=== PATIENT | female | born 1960 | race Caucasian/White ===

== ENCOUNTER 2025-07-01 09:45 | Outpatient (CLI) | payer MEDICARE, SELFPAY ==
--- OUTSIDE RECORDS SUMMARY | 2025-01-06 10:27 | XMS_ITS | Continuity of Care Document ---
Author Organization 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 Project Captain Name Role Phone Bhargavi Chanel Unavailable Unavailable Allergies, Adverse Reactions, Alerts Substance Reaction Status Criticality atorvastatin Joint Pain Active No Information amoxicillin RashRash Active No Information lisinopril Cough Active No Information codeine Active No Information Medications Medication Instructions Dosage Effective Dates (start - stop) Status Comments metoprolol succinate ER 25 mg tablet,extended release 24 hr TAKE ONE TABLET BY MOUTH DAILY - Active losartan 50 mg tablet take 1 tablet by oral route every day 50 MG - Active Flonase Allergy Relief 50 mcg/actuation nasal spray,suspension spray 1 - 2 spray by intranasal route every day in each nostril as needed 50-100 MCG - Active buspirone 5 mg tablet take 1-2 tablet by oral route 3 times every day if needed for anxiety - Active aspirin 81 mg tablet,delayed release take 1 tablet by oral route every day 81 MG - Active atorvastatin 80 mg tablet Take 1 tablet (80 mg total) by mouth nightly. - No Longer Active Procedures Procedure Date OFFICE/OUTPATIENT VISIT, EST TOBACCO USE, SMOKING, ASSESS SMOKING & 2ND HAND ASSESSED CURRENT TOBACCO SMOKER BLOOD PRESSURE, MEASURED WEIGHT RECORDED VITAL SIGNS RECORDED BODY MASS INDEX DOCD DIAST BP 80-89 MM HG SYST BP GE 130 - 139MM HG VISUAL ACUITY SCREEN Admin pneumococcal vaccine PCV20 VACCINE IM Initial preventive exam TOBACCO USE, SMOKING, ASSESS SMOKING & 2ND HAND ASSESSED CURRENT TOBACCO SMOKER PT FALLS ASSESS-DOC'D LE1/YR BLOOD PRESSURE, MEASURED WEIGHT RECORDED VITAL SIGNS RECORDED BODY MASS INDEX DOCD FALL RISK ASSESSMENT DOC'D NEG SCRN DEP SYMP BY DEPTOOL NO SIG DEP SYMP BY DEP TOOL DIAST BP >= 90 MM HG SYST BP >= 140 MM HG6 IT OFFICE/OUTPATIENT VISIT, EST TOBACCO USE, SMOKING, ASSESS SMOKING & 2ND HAND ASSESSED TOBACCO NONSMOKER NOR 2NDHND TOBACCO NON-USER BLOOD PRESSURE, MEASURED WEIGHT RECORDED VITAL SIGNS RECORDED BODY MASS INDEX DOCD DIAST BP 80-89 MM HG SYST BP >= 140 MM HG6 IT OFFICE/OUTPATIENT VISIT, EST TOBACCO USE, SMOKING, ASSESS TOBACCO NON-USER BLOOD PRESSURE, MEASURED WEIGHT RECORDED VITAL SIGNS RECORDED BODY MASS INDEX DOCD DIAST BP < 80 MM HG SYST BP >= 140 MM HG6 IT EST PT, OBTAINING SCREEN PAP SMEAR PREV VISIT, EST, AGE 40-64 TOBACCO USE, SMOKING, ASSESS SMOKING & 2ND HAND ASSESSED TOBACCO NONSMOKER NOR 2NDHND TOBACCO NON-USER BLOOD PRESSURE, MEASURED WEIGHT RECORDED VITAL SIGNS RECORDED BODY MASS INDEX DOCD NEG SCRN DEP SYMP BY DEPTOOL NO SIG DEP SYMP BY DEP TOOL DIAST BP >= 90 MM HG SYST BP >= 140 MM HG6 IT OFFICE/OUTPATIENT VISIT, EST TOBACCO USE, SMOKING, ASSESS TOBACCO NON-USER PT SCREENED FOR DEPRESSION BLOOD PRESSURE, MEASURED WEIGHT RECORDED VITAL SIGNS RECORDED BODY MASS INDEX DOCD NO SIG DEP SYMP BY DEP TOOL DIAST BP >= 90 MM HG SYST BP >= 140 MM HG6 IT OFFICE/OUTPATIENT VISIT, EST TOBACCO USE, SMOKING, ASSESS TOBACCO NON-USER PT SCREENED FOR DEPRESSION BLOOD PRESSURE, MEASURED WEIGHT RECORDED VITAL SIGNS RECORDED BODY MASS INDEX DOCD MILD-MOD DEP SYMP BY DEPTOOL DIAST BP 80-89 MM HG SYST BP >= 140 MM HG6 IT Follow Up Delivery Treatment Plan Complete Try In Bite Relation Final Impression Preliminary Impression Lab Fee Complete Denture-Mandibular Complete Denture-Maxillary Follow Up Ext, Erupt Tth/Expsd Root-Elev &/Or Forc eps Remvl Ext, Erupt Tth/Expsd Root-Elev &/Or Forc eps Remvl Ext, Erupt Tth/Expsd Root-Elev &/Or Forc eps Remvl Ext, Erupt Tth/Expsd Root-Elev &/Or Forc eps Remvl Ext, Erupt Tth/Expsd Root-Elev &/Or Forc eps Remvl Ext, Erupt Tth/Expsd Root-Elev &/Or Forc eps Remvl Ext, Erupt Tth/Expsd Root-Elev &/Or Forc eps Remvl Ext, Erupt Tth/Expsd Root-Elev &/Or Forc eps Remvl Ext, Erupt Tth/Expsd Root-Elev &/Or Forc eps Remvl Ext, Erupt Tth/Expsd Root-Elev &/Or Forc eps Remvl Ext, Erupt Tth/Expsd Root-Elev &/Or Forc eps Remvl Ext, Erupt Tth/Expsd Root-Elev &/Or Forc eps Remvl Ext, Erupt Tth/Expsd Root-Elev &/Or Forc eps Remvl Ext, Erupt Tth/Expsd Root-Elev &/Or Forc eps Remvl Removal Of Impacted Tooth-Partially Bony Ext, Erupt Tth/Expsd Root-Elev &/Or Forc eps Remvl Ext, Erupt Tth/Expsd Root-Elev &/Or Forc eps Remvl Ext, Erupt Tth/Expsd Root-Elev &/Or Forc eps Remvl Ext, Erupt Tth/Expsd Root-Elev &/Or Forc eps Remvl Ext, Erupt Tth/Expsd Root-Elev &/Or Forc eps Remvl OFFICE/OUTPATIENT VISIT, EST TOBACCO USE, SMOKING, ASSESS SMOKING & 2ND HAND ASSESSED TOBACCO NON-USER BLOOD PRESSURE, MEASURED WEIGHT RECORDED VITAL SIGNS RECORDED BODY MASS INDEX DOCD DIAST BP < 80 MM HG SYST BP GE 130 - 139MM HG BLOOD PRESSURE, MEASURED DIAST BP >= 90 MM HG SYST BP >= 140 MM HG6 IT OFFICE/OUTPATIENT VISIT, EST TOBACCO USE, SMOKING, ASSESS SMOKING & 2ND HAND ASSESSED TOBACCO NON-USER BLOOD PRESSURE, MEASURED WEIGHT RECORDED VITAL SIGNS RECORDED BODY MASS INDEX DOCD DIAST BP >= 90 MM HG SYST BP >= 140 MM HG6 IT Consultation COVID-19 MRNA, LNP-S, PF, 30 MCG/0.3 ML PFIZER ADMIN DOSE 2 (COVID VACC) 2020 COVID-19 MRNA, LNP-S, PF, 30 MCG/0.3 ML PFIZER ADMIN DOSE 1 (COVID VACC) 2020 URINALYSIS, AUTO, W/O SCOPE Consultation TRANS CARE MGMT 14 DAY DISCH OR LOW/MODE RATE CARE OFFICE/OUTPATIENT VISIT, EST Bitewings-Four Radiographic Images Intraoral-Periapical First Radiographic Image Intraoral-Periapical Each Addl Radiograp hic Image Intraoral-Periapical Each Addl Radiograp hic Image Intraoral-Periapical Each Addl Radiograp hic Image Intraoral-Periapical Each Addl Radiograp hic Image Intraoral-Periapical Each Addl Radiograp hic Image Panoramic Radiographic Image Comprehensive Oral Eval-New Or Establish ed Patient OFFICE/OUTPATIENT VISIT, EST OFFICE/OUTPATIENT VISIT, NEW Intraoral-Periapical First Radiographic Image Limited Oral Evaluation-Problem Focused Results Test Name Date and Time Measure Units Reference Range Abnormal Flag Status Commen ts Panel Description: MG Breast - bilateral Screeni ng Final Document Advance Directives Directive Yes / No Effective Date File Name No Information Encounters Encounter Description Practice Location Reason(s) For Visit Diagnoses Date Provider Providers Copied on Encounter [facility], [address], [place], [place], [id number] , [place] tel:[phone] [facility] No Information 5 Abdiaziz Burk. [address] [place], [place], [id number], [place]. tel:[phone] OFFICE/OUTPA TIENT VISIT, [facility], [address], [place], [place], [address] , [place] tel: [phone] [facility] F/U DEXA (chief complaint) OsteoporosisMi xed hyperlipidemia Essential hypertensionOt her abnormal finding on diagnostic imaging of br 5 Abdiaziz Burk. [address] [place], [place], [id number], [place]. tel:[phone] [facility], [address], [place], [place], [address] , [place] tel:[phone] [facility] Medicare preventive (chief complaint) Nicotine dependence, cigarettes, uncomplicatedE ssential hypertensionDi sorder of bone density and structure, unspecifiedMix ed hyperlipidemia 5 Abdiaziz Burk. [address] [place], [place], [id number], [place]. tel:[phone] OFFICE/OUTPA TIENT VISIT, [facility], [address], [place], [place], [address] , [place] tel: [phone] [facility] F/U HTN (chief complaint)Al lergies. (chief complaint) Allergic rhinitis due to pollen 5 Abdiaziz Acevedole. [facility] [place], [id number], . tel:[phone] OFFICE/OUTPA TIENT VISIT, [facility], [address], [place], [place], [address] , [place] tel: [phone] [facility] F/U BP (chief complaint) No Information 4 Rice Bhargavi. [facility] [place], [id number], [place]. tel:[phone] [facility], [address], [place], [place], [address] , [place] tel: [phone] [facility] No Information 4 Abdiaziz Bhargavi. [facility] [place], [id number], [place]. tel:[phone] PREV VISIT, [facility], AGE 40-[address] [facility], [address], [place], [place], [address] , [place] tel: [phone] [facility] Preventive exam (chief complaint)F/ U anxiety (chief complaint)F/ U HTN (chief complaint)F/ U high cholesterol (chief complaint) Generalized Anxiety Disorder 4 Rice Bhargavi. [facility] [place], [id number], [place]. tel:[phone] OFFICE/OUTPA TIENT VISIT, [facility], [address], [place], [place], [id number] , [place] tel: [phone] [facility] F/U HTN (chief complaint)F/ U anxiety (chief complaint) No Information 4 Rice Bhargavi. [address] [place] [address], [id number], [place]. tel:[phone] OFFICE/OUTPA TIENT VISIT, [facility], [address], [place], [place], [id number] , [place] tel: [phone] [facility] F/U HTN (chief complaint)Ab dominal Pain. (chief complaint) No Information 3 Rice Bhargavi. [address] [place], [place], [id number], [place]. tel:[phone] [facility], [address], [place], [address] , [place] tel: [phone] [facility] No Information 2 Manzini Janae. [address] [place], [place], [facility], . tel:[phone] [place] [address], [address], [place], [address] , tel: [phone] [facility] No Information 2 Manzini Janae. [address] [place], [place], [facility], [place]. tel:[phone] [facility], [address], [place], [place], [address] , [place] tel: [phone] [facility] No Information 2 Manzini Janae. [address] [place], [place], [facility], . tel:[phone] [facility], [address], [place], [place], [address] , [place] tel: [phone] [facility] No Information 0 2 Manzini Janae. [address] [place], [place], [facility], . tel:[phone] [facility], [address], [place], [place], [address] , tel: [phone] [facility] No Information 2 Manzini Janae. [address] [place], [place], [facility], . tel:[phone] [facility], [address], [place], [address] , [place] tel: [phone] [facility] No Information 2 Manzini Janae. [address] [place], [address], . tel: [phone] [facility], [address], [place], [address] , [place] tel: [phone] [facility] No Information 2 Manzini Janae. [address] [place], [address], [place]. tel: [phone] [facility], [address], [place], [address] , [place] tel: [phone] [facility] No Information 2 Manzini Janae. [address] [place], [place], [facility], [place]. tel: [phone] [facility], [address], [place], [address] , [place] tel: [phone] [facility] No Information 1 Manzini Janae. [address] [place], [place], [facility], . tel: [phone] OFFICE/OUTPA TIENT VISIT, EST [facility], [address], [place], [address] , [place] tel: [phone] [facility] F/U BP (chief complaint) No Information 1 Rice Bhargavi. [address] [place], [place], [id number], [place]. tel:[phone] [facility], [address], [place], [place], [address] , [place] tel: [phone] [facility] Blood Pressure (chief complaint) No Information 1 Broschart Bárbara. [address] [place], [place], [facility], [place]. tel:[phone] OFFICE/OUTPA TIENT VISIT, EST [facility], [address], [place], [place], [address] , [place] tel: [phone] [facility] Acute HTN (chief complaint) No Information 1 Rice Bhargavi. [address] [place] [address], [id number], [place]. tel:[phone] [facility], [address], [place], [place], [address] , [place] tel: [phone] [facility] No Information 1 Raul Cardoso. [address] [place] [address], [address], . tel:[phone] [facility], [address], [place], [place], [address] , [place] tel: [phone] [facility] No Information 1 Roberto Marie. [address] [place] [address], [id number], [place]. tel:[phone] Referring Provider: Bárbara Medina, [address] [place] [address], [address]. tel:[phone] [facility], [address], [place], [place], [address] , [place] tel: [phone] [facility] No Information 1 Roberto Marie. [address] [place] [address], [id number], [place]. tel:[phone] Referring Provider: Bárbara Medina, [address] [place] [address], [address]. tel:[phone] [facility], [address], [place], [place], [address] , [place] tel: [phone] [facility] Possible UTI (chief complaint) No Information 1 Rice Bhargavi. [address] [place] [address], [id number], . tel:[phone] [facility], [address], [place], [address] , [place] tel: [phone] [facility] No Information 1 Rual Cardoso. [address] [place], [address], . tel:[phone] TRANS CARE MGMT 14 DAY DISCH OR LOW/MODERATE CARE [facility], [address], [place], [place], [id number] , [place] tel: [phone] [facility] Telehealth (chief complaint) Personal history of cerebral infarction w/o residual deficit 1 Abdiaziz Bhargavi. [address] [place] [address], [id number], . tel:[phone] OFFICE/OUTPA TIENT VISIT, [facility], [address], [place], [place], [address] , [place] tel: [phone] [facility] F/U HTN (chief complaint)An xiety. (chief complaint) No Information 1 Abdiaziz Bhargavi. [address] [place] [address], [id number], . tel:[phone] [facility], [address], [place], [address] , [place] tel: [phone] [facility] No Information 1 Raul Cardoso. [address] [place] [address], [address], . tel:[phone] OFFICE/OUTPA TIENT VISIT, [facility], [address], [place], [place], [address] , [place] tel: [phone] [facility] F/U HTN (chief complaint)F/ U Anxiety (chief complaint)De ntal concerns (chief complaint) No Information 0 Abdiaziz Burk. [address] [place] [address], [id number], [place]. tel:[phone] OFFICE/OUTPA TIENT VISIT, NEW [facility], [address], [place], [place], [address] , [place] tel: [phone] [facility] New Patient (chief complaint)HT N (chief complaint)Ch ronic Anxiety (chief complaint)Ni cotine Dependence (chief complaint)R Shoulder Pain (chief complaint) No Information 0 Abdiaziz Bhargavi. [address] [place], [place], [id number], [place]. tel:[phone] [facility], [address], [place], [place], [address] , [place] tel: [phone] [facility] No Information 0 Raul Nuñezanor. [address] [place], [address], [place]. tel:[phone] [facility], [address], [place], [address] , [place] tel: [phone] [facility] Historical Location No Information 4 No Information Family History Family Member Type Diagnosis Age At Onset Sister Problem hypertension Brother Problem VA Brother Problem Cardiovascular disease Mother Problem hypertension Sister Problem Cardiovascular disease Father Problem malignant neopla sm of breast in first degree relative Father Problem malignant neoplasm of lung Mother Problem alzheimer's disease Brother Problem hypertension Mother Problem Cardiovascular disease Sister Problem VA Immunizations Vaccine Date Status Comments PCV20 administered Source: New Imm unization Record PFIZER COVID19 VACCINE administered Sour e: New Immunization Record PFIZER COVID19 VACCINE administered Sour e: New Immunization Record Payers Payer name Insurance type Covered democrat ID Authoriza tion(s) MEDICARE NGS FQHC MB [id number] HUMANA CI [id number] MEDICARE NGS FQHC MB [id number] [employer]MANA CI [id number] Social History Type Description Quantity Date Captured Comments Sex Female Smoking Status No Information Sexual Orientation Straight or heterosexual Mar Gender Identity Female Chief Complaint And Reason For Visit No Information Reason For Referral Reason For Referral No Information Plan Of Treatment Date Type Action Status Goal Mammogram. Due on 7 due Goal Drug use screeni ng (DAST). Due on due Goal HPV. Due on due Goal CT low dose, bhavesh g cancer screen. Due on due Goal Fall Risk Assess ment. Due on due Goal Tdap Vaccine. Due on 2024 due Goal DEXA scan. Due on due Goal ECG due Goal Hep C Ab. Due on due Goal FOBT. Due on due Goal Influenza Vaccine. Due on due Goal Colonoscopy. Due on 025 due Goal Urinalysis. Due on 25 due Goal FIT-DNA. Due on due Goal HRA. Due on due Goal Unhealthy drug u se screening. Due on due Goal Zoster vaccine ( 1st). Due on due Goal CT-Colonography. Due on due Goal Td Vaccine. Due on due Goal FIT. Due on due Goal Pneumococcal vac cine. Due on due Goal Tdap. Due on due Goal Medicare Wellnes s Visit. Due on due Goal Sigmoidoscopy. Due on due Goal Depression scree macey. Due on due Goal HPV. Due on due Goal Drug use screeni ng (DAST). Due on due Goal HRA. Due on due Goal Sigmoidoscopy. Due on due Goal Unhealthy drug u se screening. Due on due Goal Medicare Wellnes s Visit. Due on due Goal Pneumococcal vac cine. Due on due Goal FIT. Due on due Goal Depression scree macey. Due on due Goal Tdap. Due on due Goal Zoster vaccine ( 1st). Due on due Goal Fall Risk Assess ment. Due on due Goal FOBT. Due on due Goal Colonoscopy. Due on due Goal CT-Colonography. Due on due Goal Tdap Vaccine. Due on [address] low dose, bhavesh g cancer screen. Due on due Goal Influenza Vaccine. Due on due Goal FIT-DNA. Due on due Goal Urinalysis. Due on due Goal Hep C Ab. Due on due Goal Td Vaccine. Due on due Goal DEXA scan. Due on due Goal Tobacco cessation counseling completed Goal Tdap Vaccine. Due on 2024 due Goal Influenza Vaccine. Due on due Goal FIT. Due on due Goal Mammogram. Due on due Goal Unhealthy drug u se screening. Due on due Goal Colonoscopy. Due on due Goal Medicare Wellnes s Visit. Due on due Goal HRA. Due on due Goal FIT-DNA. Due on due Goal Hep C Ab. Due on due Goal HPV. Due on due Goal Depression scree macey. Due on due Goal Pneumococcal vac cine. Due on due Goal FOBT. Due on due Goal Td Vaccine. Due on due Goal Fall Risk Assess ment. Due on due Goal Drug use screeni ng (DAST). Due on due Goal Urinalysis. Due on due Goal ECG. Due on due Goal CT-Colonography. Due on due Goal CT low dose, bhavesh g cancer screen. Due on due Goal DEXA scan. Due on due Goal Sigmoidoscopy. Due on due Goal Zoster vaccine ( 1st). Due on due Goal Tdap. Due on due Goal Mammogram. Due on due Goal FIT-DNA. Due on due Goal Unhealthy drug u se screening. Due on due Goal HIV Screen. Due on due Goal CT-Colonography. Due on due Goal HPV. Due on due Goal PAP. Due on due Goal Zoster vaccine ( 1st). Due on due Goal HRA. Due on due Goal FIT. Due on due Goal Depression scree macey. Due on due Goal Colonoscopy. Due on due Goal Sigmoidoscopy. Due on due Goal HPV Screening. Due on due Goal Drug use screeni ng (DAST). Due on due Goal Td Vaccine. Due on due Goal Hep C Ab. Due on due Goal Tdap Vaccine. Due on 2023 due Goal FOBT. Due on due Goal Tdap. Due on due Goal Influenza Vaccine. Due on due Goal ECG. Due on due Goal Urinalysis. Due on due Goal CT low dose, bhavesh g cancer screen. Due on due Goal Tdap Vaccine. Due on 2023 due Goal PAP. Due on due Goal FOBT. Due on due Goal Mammogram. Due on due Goal Zoster vaccine ( 1st). Due on due Goal HIV Screen. Due on due Goal Drug use screeni ng (DAST). Due on due Goal Td Vaccine. Due on due Goal Depression scree macey. Due on due Goal Tdap. Due on due Goal Colonoscopy. Due on due Goal CT-Colonography. Due on due Goal Influenza Vaccine. Due on due Goal ECG. Due on due Goal Urinalysis. Due on due Goal HPV. Due on due Goal Hep C Ab. Due on due Goal FIT-DNA. Due on due Goal Sigmoidoscopy. Due on due Goal HPV Screening. Due on due Goal FIT. Due on due Goal Unhealthy drug u se screening. Due on due Goal CT low dose, bhavesh g cancer screen. Due on due Goal HRA. Due on due Goal Dietary manageme nt education, guidance, and counseling completed Goal Zoster vaccine ( ). Due on due Goal Mammogram. Due on due Goal Unhealthy drug u se screening. Due on due Goal Tdap Vaccine. Due on 2023 due Goal HRA. Due on due Goal Td Vaccine. Due on due Goal FIT-DNA. Due on due Goal Hep C Ab. Due on due Goal FOBT. Due on due Goal Depression scree macey. Due on due Goal Tdap. Due on due Goal HIV Screen. Due on due Goal FIT. Due on due Goal Influenza Vaccine. Due on due Goal HPV Screening. Due on due Goal HPV. Due on due Goal PAP. Due on due Goal Colonoscopy. Due on due Goal ECG. Due on due Goal CT low dose, bhavesh g cancer screen. Due on due Goal Urinalysis. Due on due Goal Sigmoidoscopy. Due on due Goal Drug use screeni ng (DAST). Due on due Goal CT-Colonography. Due on due Goal Influenza Vaccine. Due on due Goal Zoster vaccine ( 1st). Due on due Goal HRA. Due on due Goal FOBT. Due on due Goal Colonoscopy. Due on due Goal Sigmoidoscopy. Due on due Goal HPV Screening. Due on due Goal CT low dose, bhavesh g cancer screen. Due on due Goal Tdap. Due on due Goal Depression scree macey. Due on due Goal Hep C Ab. Due on due Goal Tdap Vaccine. Due on 2022 due Goal HIV Screen. Due on due Goal PAP. Due on due Goal Td Vaccine. Due on due Goal Annual Exam. Due on due Goal Td Vaccine. Due on due Goal Tdap. Due on due Goal Depression scree macey. Due on due Goal Colonoscopy. Due on due Goal Zoster vaccine ( 1st). Due on due Goal Hep C Ab. Due on due Goal HRA. Due on due Goal Tdap Vaccine. Due on 2021 due Goal HIV Screen. Due on due Goal Mammogram. Due on due Goal Sigmoidoscopy. Due on due Goal Annual Exam. Due on due Goal PAP. Due on due Goal Influenza Vaccine. Due on due Goal CT low dose, bhavesh g cancer screen. Due on due Goal HPV Screening. Due on due Goal FOBT. Due on due Goal PAP. Due on due Goal Influenza Vaccine. Due on due Goal HPV Screening. Due on due Goal FOBT. Due on due Goal Depression scree macey. Due on due Goal Tdap Vaccine. Due on 2021 due Goal HRA. Due on due Goal Tdap. Due on due Goal HIV Screen. Due on due Goal Hep C Ab. Due on due Goal Annual Exam. Due on due Goal Colonoscopy. Due on due Goal Mammogram. Due on due Goal Sigmoidoscopy. Due on due Goal Td Vaccine. Due on due Goal Zoster vaccine ( 1st). Due on due Goal CT low dose, bhavesh g cancer screen. Due on due Goal PAP. Due on due Goal HPV Screening. Due on due Goal FOBT. Due on due Goal Hep C Ab. Due on due Goal Tdap Vaccine. Due on 2021 due Goal Influenza Vaccine. Due on due Goal HRA. Due on due Goal HIV Screen. Due on due Goal Annual Exam. Due on due Goal CT low dose, bhavesh g cancer screen. Due on due Goal Depression scree macey. Due on due Goal Tdap. Due on due Goal Colonoscopy. Due on due Goal Mammogram. Due on due Goal Sigmoidoscopy. Due on due Goal Zoster vaccine ( ). Due on due Goal Td Vaccine. Due on due Goal Zoster vaccine ( ). Due on due Goal HPV Screening. Due on due Goal Annual Exam. Due on due Goal HRA. Due on due Goal Sigmoidoscopy. Due on due Goal Mammogram. Due on due Goal Tdap Vaccine. Due on 2021 due Goal Colonoscopy. Due on due Goal Tdap. Due on due Goal Hep C Ab. Due on due Goal Depression scree macey. Due on due Goal FOBT. Due on due Goal HIV Screen. Due on due Goal Influenza Vaccine. Due on due Goal Td Vaccine. Due on due Goal CT low dose, bhavesh g cancer screen. Due on due Goal PAP. Due on due Goal Colonoscopy. Due on due Goal Tdap. Due on due Goal Td Vaccine. Due on due Goal Annual Exam. Due on due Goal Hep C Ab. Due on due Goal FOBT. Due on due Goal Influenza Vaccine. Due on due Goal Depression scree macey. Due on due Goal HPV Screening. Due on due Goal HIV Screen. Due on due Goal HRA. Due on due Goal Zoster vaccine ( 1st). Due on due Goal Mammogram. Due on due Goal Tdap Vaccine. Due on 2021 due Goal Sigmoidoscopy. Due on due Goal CT low dose, bhavesh g cancer screen. Due on due Goal PAP. Due on due Goal Tdap Vaccine. Due on 2021 due Goal Annual Exam. Due on due Goal Td Vaccine. Due on due Goal Hep C Ab. Due on due Goal Sigmoidoscopy. Due on due Goal Zoster vaccine ( ). Due on due Goal Colonoscopy. Due on due Goal Tdap. Due on due Goal HRA. Due on due Goal PAP. Due on due Goal CT low dose, bhavesh g cancer screen. Due on due Goal Depression scree macey. Due on due Goal HIV Screen. Due on due Goal HPV Screening. Due on due Goal Mammogram. Due on due Goal FOBT. Due on due Goal Influenza Vaccine. Due on due Goal PAP. Due on due Goal Mammogram. Due on due Goal Zoster vaccine ( ). Due on due Goal Annual Exam. Due on due Goal Colonoscopy. Due on due Goal Tdap. Due on due Goal Hep C Ab. Due on due Goal Influenza Vaccine. Due on due Goal HRA. Due on due Goal Depression scree macey. Due on due Goal Td Vaccine. Due on due Goal HPV Screening. Due on due Goal Sigmoidoscopy. Due on due Goal CT low dose, bhavesh g cancer screen. Due on due Goal Tdap Vaccine. Due on 2021 due Goal FOBT. Due on due Goal HIV Screen. Due on due Goal PAP. Due on due Goal Td Vaccine. Due on due Goal Hep C Ab. Due on due Goal CT low dose, bhavesh g cancer screen. Due on due Goal HIV Screen. Due on due Goal FOBT. Due on due Goal Annual Exam. Due on due Goal Tdap. Due on due Goal Influenza Vaccine. Due on due Goal Zoster vaccine ( ). Due on due Goal HPV Screening. Due on due Goal Depression scree macey. Due on due Goal Sigmoidoscopy. Due on due Goal Mammogram. Due on due Goal Colonoscopy. Due on due Goal HRA. Due on due Goal Depression scree macey. Due on due Goal FOBT. Due on due Goal Mammogram. Due on due Goal CT low dose, bhavesh g cancer screen. Due on due Goal Sigmoidoscopy. Due on due Goal HIV Screen. Due on due Goal Hep C Ab. Due on due Goal Td Vaccine. Due on due Goal PAP. Due on due Goal Colonoscopy. Due on due Goal Annual Exam. Due on due Goal Zoster vaccine ( ). Due on due Goal HPV Screening. Due on due Goal HRA. Due on due Goal Tdap. Due on due Goal Influenza Vaccine. Due on No due Goal Zoster vaccine ( ). Due on due Goal Influenza Vaccine. Due on No due Goal HIV Screen. Due on due Goal HRA. Due on due Goal Colonoscopy. Due on due Goal Sigmoidoscopy. Due on due Goal Depression scree macey. Due on due Goal Mammogram. Due on due Goal FOBT. Due on due Goal Annual Exam. Due on due Goal Hep C Ab. Due on due Goal HPV Screening. Due on due Goal Td Vaccine. Due on due Goal Tdap. Due on due Goal CT low dose, bhavesh g cancer screen. Due on due Goal PAP. Due on due Goal HPV Screening. Due on due Goal Depression scree macey. Due on due Goal Zoster vaccine ( ). Due on due Goal HRA. Due on due Goal Hep C Ab. Due on due Goal Annual Exam. Due on due Goal Colonoscopy. Due on due Goal Tdap. Due on due Goal Influenza Vaccine. Due on due Goal CT low dose, bhavesh g cancer screen. Due on due Goal FOBT. Due on due Goal Mammogram. Due on due Goal PAP. Due on due Goal HIV Screen. Due on due Goal Sigmoidoscopy. Due on due Goal Td Vaccine. Due on due Goal PAP. Due on due Goal CT low dose, bhavesh g cancer screen. Due on due Goal HPV Screening. Due on due Goal Depression scree macey. Due on due Goal Hep C Ab. Due on due Goal Sigmoidoscopy. Due on due Goal Zoster vaccine ( 1st). Due on due Goal HRA. Due on due Goal Mammogram. Due on due Goal HIV Screen. Due on due Goal FOBT. Due on due Goal Colonoscopy. Due on due Goal Tdap. Due on due Goal Td Vaccine. Due on due Goal Annual Exam. Due on due Goal Influenza Vaccine. Due on Oc due Goal Sigmoidoscopy. Due on due Goal Hep C Ab. Due on due Goal HPV Screening. Due on due Goal HIV Screen. Due on due Goal Tdap. Due on due Goal FOBT. Due on due Goal CT low dose, bhavesh g cancer screen. Due on due Goal Td Vaccine. Due on due Goal Annual Exam. Due on due Goal Colonoscopy. Due on due Goal Mammogram. Due on due Goal Influenza Vaccine. Due on Oc due Goal Zoster vaccine ( ). Due on due Goal Depression scree macey. Due on due Goal HRA. Due on due Goal PAP. Due on due Goal HRA. Due on due Goal Tdap. Due on due Goal Sigmoidoscopy. Due on due Goal Zoster vaccine ( ). Due on due Goal Annual Exam. Due on due Goal HIV Screen. Due on due Goal Mammogram. Due on due Goal Hep C Ab. Due on due Goal Td Vaccine. Due on due Goal Depression scree macey. Due on due Goal Influenza Vaccine. Due on due Goal HPV Screening. Due on due Goal FOBT. Due on due Goal Colonoscopy. Due on due Goal PAP. Due on due Goal HRA. Due on due Goal Mammogram. Due on due Goal Hep C Ab. Due on due Goal Zoster vaccine ( 1st). Due on due Goal Influenza Vaccine. Due on due Goal Td Vaccine. Due on due Goal FOBT. Due on due Goal Colonoscopy. Due on due Goal HPV Screening. Due on due Goal Tdap. Due on due Goal Depression scree macey. Due on due Goal Sigmoidoscopy. Due on due Goal HIV Screen. Due on due Goal Annual Exam. Due on due Goal PAP. Due on due Goal PAP. Due on due Goal HPV Screening. Due on due Goal Mammogram. Due on due Goal Influenza Vaccine. Due on due Goal Annual Exam. Due on due Goal Colonoscopy. Due on due Goal Depression scree macey. Due on due Goal HRA. Due on due Goal Td Vaccine. Due on due Goal FOBT. Due on due Goal Zoster vaccine ( ). Due on due Goal Hep C Ab. Due on due Goal HIV Screen. Due on due Goal Tdap. Due on due Goal Sigmoidoscopy. Due on due Goal PAP. Due on due Goal HRA. Due on due Goal Mammogram. Due on due Goal Influenza Vaccine. Due on due Goal Tdap. Due on due Goal Td Vaccine. Due on due Goal Annual Exam. Due on due Goal Hep C Ab. Due on due Goal Sigmoidoscopy. Due on due Goal FOBT. Due on due Goal Depression scree macey. Due on due Goal Zoster vaccine ( ). Due on due Goal Colonoscopy. Due on due Goal HPV Screening. Due on due Goal HIV Screen. Due on due Goal PAP. Due on due Goal Hep C Ab. Due on due Goal Sigmoidoscopy. Due on due Goal Colonoscopy. Due on due Goal Zoster vaccine ( ). Due on due Goal Influenza Vaccine. Due on due Goal Annual Exam. Due on due Goal HIV Screen. Due on due Goal FOBT. Due on due Goal Depression scree macey. Due on due Goal HPV Screening. Due on due Goal Td Vaccine. Due on due Goal Mammogram. Due on due Goal HRA. Due on due Goal Tdap. Due on due Goal PAP. Due on due Goal Depression scree macey. Due on due Goal Mammogram. Due on 0 due Goal FOBT. Due on due Goal Sigmoidoscopy. Due on due Goal HIV Screen. Due on due Goal Td Vaccine. Due on due Goal Zoster vaccine ( ). Due on due Goal HRA. Due on due Goal Tdap. Due on due Goal Colonoscopy. Due on due Goal Annual Exam. Due on due Goal Influenza Vaccine. Due on due Goal HPV Screening. Due on due Goal Colonoscopy. Due on due Goal HPV Screening. Due on due Goal Annual Exam. Due on due Goal Sigmoidoscopy. Due on due Goal Td Vaccine. Due on due Goal Zoster vaccine ( 1st). Due on due Goal Mammogram. Due on 0 due Goal FOBT. Due on due Goal HRA. Due on due Goal Tdap. Due on due Goal HIV Screen. Due on due Goal Depression scree macey. Due on due Goal Influenza Vaccine. Due on due Goal PAP. Due on due Goal Tobacco cessation counseling completed Goal Tobacco cessation counseling completed Goal Sigmoidoscopy. Due on due Goal Depression scree macey. Due on due Goal Influenza Vaccine. Due on due Goal Lipid panel. Due on due Goal FOBT. Due on due Goal Tdap. Due on due Goal PAP. Due on due Goal Zoster vaccine ( ). Due on due Goal Annual Exam. Due on due Goal Td Vaccine. Due on due Goal Mammogram. Due on 0 due Goal HRA. Due on due Goal HPV Screening. Due on due Goal HIV Screen. Due on due Goal Colonoscopy. Due on due Future Order: Lab Order COLOGUAR D (EXSCIENCE), Ordered on: Ordered History Of Present Illness Encounter Date Complaint History Of Prese nt Illness F/U DEXA Pt here to anastasia garay up on results from her DEXA scan, which shows osteoporosis. States she does not currently take any vitamin D or calcium supplements and does not have much calcium in her diet. She is a smoker. She has not had any fractures in the past . Medicare preventive Functional S tatus: (Functional status has not changed) on 11/27/2024. Cognitive Status: (Cognitive status has not changed) on 11/27/2024. The ''Up and Go'' test took less than 30 seconds andthe patient does not need help with activities of daily living. The patient is not at risk for falls. The patient has not fallen in the last year. The fall(s) did not result in injury. Patient's activity level is moderate. The patient has smoke detectors, carbon monoxide detectors in the home. The patient does not have firearms in the home. Patient's home has not been tested for radon. Patient reports using a seatbelt in vehicles. Patient reports a regular diet diet. Patient denies recent weight gain. Patient denies recent weight loss. Patient does not take calcium. Patient reports not taking Vitamin D. Patient does not take a multivitamin. Patient does not take folic acid. Relevant history is positive for tobacco use. Relevant history is negative for passive vaping exposure, passive smoke exposure and alcohol use. F/U HTN Pt here for gareth meyer on HTN. She states she is taking all medications as prescribed and she does check her pressures regularly at home. States they are almost always 120/70-80s and she has never had readings above 140/90. States she feels well on the medications and does need refills. Due for labs. Allergies. Pt states she is struggling with allergies. .She has lots of watery eyes, nasal drainage and is always clearing her throat. States she was on flonase in the past which helped and is requesting a refill. Also wanting to see if she can get anything else for allergies sent in. F/U BP Pt here to anastasia meyer on BP. States her pressure at home will usually run around 120/80. She did bring her BP monitor in to the office to compare against manual reading and they were accurate. Her pressure readings at home range from 90/60 to 120s/80 at the highest. She states she is still taking Losartan 50mg but has not increased this due to fear of hypotension, which she has had in the past. She states otherwise she is doing well. Her sister, whom pt is taking care of, [place] the [place] so pt states her stress will reduce which is good. F/U high cholesterol Pt has a hi story of high cholesterol and a history of carotid artery stenosis, TIA. She has tried taking statins in the past and had side effects so they were stopped, and currently declined any medication management. She has not had labs recently due to concerns with insurance coverage but is willing to have them ordered today. She states since her last visit she has noticed increased pains in her legs when she is active, which seems to get better after she sits and rests. She describes it as '20 minutes of work and 20 minutes of rest, then continue. States her feet to seem cold and tingle from time to time but she denies any numbness. F/U HTN BP continues to be elevated despite taking two medications, however pt states she does check this regularly at home and pressures are always normal range of 120/80. She states she does not wish to adjust medications because they are normal when she takes this at home. She denies any CP, SOB, palpitations, edema, headaches, vision changes. F/U anxiety Pt states jennifer givens did work for her anxiety but caused too much drowsiness. She states she cares for her ill sister and needs to be able to drive and would like to try reducing the dose. Preventive exam The patient no zay cardenas uses tobacco. The patient has not been exposed to passive smoke. The patient has not been exposed to passive vaping. The patient does not drink alcohol. F/U anxiety Pt is caring for her sister with worsening Parkinson's and this has caused her anxiety to increase. Pt states that she will have panic attacks several times a week where she will need to use a paper bag to help calm herself down. She states she would like to get back on something for as needed anxiety. F/U HTN Pt seen after 1 year absence for medication refills and follow up on HTN. Pt states she continues to take her medications daily however pressure is elevated in the office today. Pt always has elevated BP in office due to severe white coat syndrome and states she has been checking this at home for the past week and all pressures are under 120/80. States she has been feeling well on the medication and does need refills. Denies MARTINEZ, vision changes, SOB, CP, palpitations. Abdominal Pain. Several days ago pt states after eating she got severe RUQ pain along with indigestion, and this radiated to her back. States she stopped eating all fatty foods or meats and the pain slowly improved. States she does have a family history of gallbladder issues and wanted to get this evaluated. States pain has now resolved. She has never had an episode like this in the past, but does state she has gas and nausea often along with bloating and heartburn. She denies fever, chills, abd pain, diarrhea, constipation, blood or mucous in stools, decreased appetite. F/U HTN Pt here to anastasia garay up on HTN. States she is taking medications as prescribed and does check her pressures regularly at home, she states her pressures are perfect around 115/80 or lower. She does occasionally get lightheaded and states her pressure at one point dropped to 90/60s, but this is rare. She does not need refills. F/U BP Pt here for gareth ow up blood pressure to get cleared for upcoming dental surgery. Pt has had medication adjusted, now on Losartan 50mg and clonidin prn, states medications seem to be working well for her. She does continue to check this at home and pressure will usually be in the 120s/80s and she is not having any symptoms like MARTINEZ, vision changes, SOB, palpitations. Does still have situations where anxiety will get high which will then increase BP, but she will take a whole or half clonidine and this brings pressure into normal range and keeps them there. States she has only used this once and had no side effects, tolerated it well. States she is due to have extensive dental work done tomorrow. Blood Pressure Pt here for tiffany d pressure check. SY VARGHESEN Acute HTN Pt here acute vi sit for HTN. Pt was seen at the dentist office last week trying to get several teeth pulled however this was denied due to BP being too elevated. Pt has had issues with this in the past as well. When last seen in February for an acute visit BP was elevated despite being on metoprolol, and pt was advised to check at home and call if pressure remained elevated for BP med adjustment. Pt states she has not been doing this, and just would double her metoprolol if she felt anxious and her pressure was high. States she does not currently have any MARTINEZ, vision changes, CP, SOB, palpitations. Does get MARTINEZ when her anxiety flares but this resolves. Possible UTI Pt states for th e past four day she has had pain when she urinates, pelvic and back pain, chills, and urinary urgency. States symptoms feel similar to UTIs she has had in the past, and she did an at-home test that told she had one as well. She has not had a fever and is eating and drinking normally. Has been drinking lots of water. Telehealth/Telemedicine Physicia n Location: [address] [place] [id number] Location: [address] [facility] [address] [place], [place] [id number] of Visit: TelehealthOther participants: NoneInterpreter: None [facility] and 09/14-09/15 See full chart note from 09/16/20: Admiss ion Date: 09/14/2020 Discharge Date: 09/15/2020 Primary Discharge DiagnosisSymptomatic high-grade right internal carotid artery stenosisSecondary Discharge DiagnosisRecent CVA secondary to high-grade right internal carotid artery stenosisHypertension/hyperlipidemiaCOPDDisch arge DispositionHome or Self Care - 01Code Status at Discharge: FullActive Issues Requiring Follow-upInstructed to make an appointment to see me (Dr. Vo) in 3 weeks. See full chart note from 09/10/20:Admission Date/Time:09/07/2020 8:36 AMDischarge D ate: ischarge?Diagnoses: P rincipal Problem:CVA (cerebral vascular accident) (CMS/HCC)Active Problems:TIA (transient ischemic attack)Essential hypertensionAnxietyDependence on nicotine from cigarettesHISTORY OF PRESENT ILLNESS from H&P dated 09/07: T is a 59-year-old female past medical history of hypertension, anxiety, nicotine abuse. S he reports that she went to bed approximately 10:00 last evening in her normal state of health. S he reports sometime in the night she awoke and was experiencing left-sided numbness and tingling. S he reports that the tingling was in her face left arm and left leg. S he went back to sleep and when she awoke this morning the symptoms had resolved. S he did present to the emergency department for further evaluation and treatment. C T of the head performed shows no acute process however there is evidence of subacute to old infarct in the right parietal lobe. ?CTA of head and neck does show a right internal carotid artery occlusion greater than 75% with less than 50% noted on the left internal carotid artery. T carlos-neurology was consulted and has seen the patient. Waldo pritchett identified that the patient is a candidate for the CHANCE/POINT protocol and was administered Plavix and aspirin in the emergency department. A t the time my assessment the patient is asymptomatic. Jarred nick also reports that she is started 2 new medications in the last few days.Hospital course:Patient was seen in consultation by neurology, cardiology, general surgery this hospital stay. MRI is positive for a CVA. Patient is scheduled to endarterectomy September 14. Cardiac clearance was performed this hospital stay. Stress test is unremarkable. Patient was instructed to stop smoking. Patient will continue on Plavix. She will stop her aspirin 3 days prior to procedure. Following procedure she will resume aspirin and Plavix per Zeke protocol.Cerebrovascular accident (CVA) due to stenosis of right carotid artery (CMS/HCC) Pt states overall her pain in her neck s/p endarterectomy is controlled. She is having more issues with her teeth than anything. She reports needing to get them all pulled to transition into dentures but she had issues prior to her CVA with her BP running too high and being unable to complete the procedure. During her hospitalization a couple of her front teeth were loosened and knocked out and many more are much looser and are making it difficult to eat as well. She is currently scheduled to see the dentist on 10/16/20 and is hoping to have at least her top teeth taken care of. The pt states she has been using Tylenol only at home for pain control. Prior to her stroke she was not taking the buspar but since her CVA she has been and she would like to discuss usage today. She would prefer not to be on anything but reports she has had issues with panic attacks since her late had been dx with pancreatic cancer and she has noticed that taking the buspar every 8 hours is keeping her BP more controlled. She also states she quit smoking when she had the CVA and is having some cravings. She cannot be on nicotine replacement right now but wants to discuss either the buspar or other options to help ensure she doesn't go back to smoking. She is unsure if she has to stay on atorvastatin but will need refills today on the atorvastatin, buspar, and metoprolol. She is checking her BP 3x daily at home and typically averages 120s/60s when her teeth/neck are not hurting. She will f/u with Dr. Vo, general surgeon again on 10/05/20. He is planning a repeat U/S of her carotid arteries in 3 months x 2 then she will move to every 6 month carotid dopplers. At this time he was not advising a cardiology referral - to discuss with her PCP further. Lastly the pt received a notice to appear for jury duty on 10/07/20 and will need a letter medically clearing her of this civil obligation- will need this faxed to [facility]. Phone number is [phone]. All current and d/c medications were reconciled. 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 Pt states she martinez s been under a lot of stress since she was last seen, with her granddaughter getting sick and needing surgery and her daughter having to postpone her wedding due to the pandemic. She is finding it harder to leave her house and she gets very anxious whenever she does. She states the vistaril did help when she kaz take it, however it made her too sleepy so she could only take it at night. Does not want an every day medication but is willing to try another as needed. F/U HTN Pt here to discu ss elevated blood pressure when she was at the dentist yesterday so they would not do any procedures. Pt was previously on Lisinopril, but states she stopped this around a month ago because of a cough and it making her blood pressure go too low. States she only gets elevated blood pressure when she is anxious, which lately seems like it is all the time. She does have a BP cuff at home that she checks regularly. F/U HTN Pt here for 1 mo [facility] follow up on blood pressure. Pt was started on lisinopril last month after being turned away from the dentist for elevated BP. States she has tolerated the medication well and is not having any side effects or symptoms of hypotension that she is aware of. F/U Anxiety Was given vistar il last visit for as needed anxiety, as she was struggling with the of her last year. States overall she has been doing very well and has rarely needed to take the medication. She did take it a few times and it helped, however made her sleepy. Dental concerns States she has h ad issues with her teeth since not being able to get back in with the dentist and has been having pain, swelling, some drainage from the gums in her lower jaw. Unsure if she has had a fever but states she now has pain radiating to her ear and down her throat. R Shoulder Pain Has started to h ave pain in her R shoulder more consistently as she is waling her large puppy, and he will pull her when walking. States she thinks she originally injured her shoulder having to lift and maneuver her when he was ill, and this seemed to improve after he passed and she rested it. She believes she re-irritated it with her dog. Would like to discuss an x-ray today for this. Nicotine Dependence Has smoked a round 1 PPD for the past 40 years, but states once she was told her BP was very high she has started to cut back. States she is down to 4-5 cigarettes most days and wants to continue to cut back. Feels like she is doing well with this. No know diagnosis of COPD but pt is concerned she may have this due to years of smoking. Denies cough, weight loss, hemoptysis. Does not seem to have any issues with dyspnea on exertion as she is very active and will walk or run frequently with her new puppy. Chronic Anxiety Has struggled wi th the of her to pancreatic cancer in October 2018. She used to get frequent panic attacks that was improving, but now has worsened again. States she will wake up feeling tense and anxious, and have continuous anxiety throughout the day. Has not seen a therapist and has never been on medication for this, states she does not want to be on a daily medication. Denies depression or thoughts of SI, self harm. HTN States she was a t the dentist earlier this month and was told her BP was elevated. Pt states she has been checking this with a neighbor's cuff and they will range from 170s/110 at the highest. States she has had a MARTINEZ that will come and go but denies any vision changes, SOB, CP, palpitations, orthopnea. Denies any known issues with cholesterol but has not had this checked in many years. Never been on medications. New Patient Pt here to estab hola as a new patient. States she has not seen any provider in many years. Current smoker, around 1 PPD but is working on cutting back. Denies any alcohol use but does use recreational marijuana. Due for pap, mammogram, colonoscopy. States she thinks a half-sister had breast cancer, denies any known FH of cancers. States most family members have issues with CAD or heart issues. Due for vision and dental exams. Additional concerns listed below. Functional Status Date Functional Assessmen t No Information Instructions Date Instruction Additional Infor vernon Pt does have follow up imaging after having screening mammogram, not scheduled until the end of the month. Pt will be contacted with results and further recommendations. Related to Other abnormal finding on diagnostic imaging of br Well controlled on c urrent mediations, will refill when needed. Related to Essential hypertension Reviewed latest labs , cholesterol is very well controlled on statin and diet/lifestyle changes. She was encouraged to continue this and have labs checked yearly. Related to Mixed hyperlipidemia Discussed results of DEXA and answered all questions. She declined wanting to start any prescription medications at this time but did agree to starting Vit D and calcium as well as start incorporating more body weight exercises into her routine. Advised repeating scan in 1 year. Related to Osteoporosis Labs ordered, she wi ll return for these. Pt was given an order for her mammogram and bone density scan, also will send in her order for an EKG which she was unable to have done here due to a faulty machine. LDCT scan ordered. Cologuard ordered. Up to date on pap, done in 2023. Related to Encntr for general adult medical exam w/o abnormal findings In office vision screen complete d. Related to Encounter for examination of eyes and vision without abnormal findings Pressures are elevat ed today however she states it is normal at home when she will check this, which she does often. Encouraged her to continue to keep a log at home of her pressures and if they are elevated at 140/90 to call so medication adjustments can be made. Labs ordered, she will return for these. Related to Essential hypertension Tolerating her stati n well, will have her return for fasting labs. Will refill medications when needed. Related to Mixed hyperlipidemia States she hast just recently started her new allergy medication and does not know how it is working yet. Will contact clinic if there are any issues or concerns. Related to Allergic rhinitis due to pollen Pt was given an orde r for her mammogram and encouraged to schedule this through [facility] lennie. Related to Encounter for screening mammogram for Ca of breast LDCT scan ordered, i f she is unable to complete this prior to moving she was encouraged to set this up with her new provider. Related to Nicotine dependence, cigarettes, uncomplicated Cologuard ordered. Related to En counter for screening for cancer of colon Pt was given an orde r for a bone density scan to complete at [facility]. Related to Disorder of bone density and structure, unspecified Declined screening l abs for HIV at this time. Related to Encounter for screening for HIV Declined screening f or Hep C at this time. Related to Encounter for screening for other viral diseases Counseled on weight reduction Counseled on dietary changes Elevated in office h denis pt is very diligent about checking pressures at home and they are all in normal range. Will refill medications without dose adjustments, and encourage her to bring her home cuff with her to her next appointment so we can confirm it is accurate, and a record of her pressures at home. Related to Essential hypertension Start an antihistami ne and will refill flonase. Related to Allergic rhinitis due to pollen Pt's at home cuff re ads accurately to manual reading done in office, and her at home pressures at times were borderline hypotensive. Will not change medication dose at this time but encouraged her to continue to check pressures daily and call if they start to elevated or message us through the portal and she agrees. Follow up in 6 months for re-check and labs, sooner if needed. Related to Essential hypertension See #7 Related to Exerc ise counseling See #7 Related to Dieta ry counseling and surveillance Declined statin ther apy but does agree to updated labs . She will consider medication management pending results. Related to Mixed hyperlipidemia Discussed claudicati on and concern for PAD. She declined any US work-up due to insurance concerns but does agree to starting cilostazol once her lab work is reviewed. Discussed emergent symptoms and when to return or go to ED and she agrees. Related to Claudication Will reduce dose of hydroxyzine to 10mg, however if this still makes her drowsy she was encouraged to call so the medication can be switched and she agrees. Related to Generalized Anxiety Disorder Elevated today howev er pt declined medication adjustment as she states she checks her pressures regularly at home and they are always 120/80. Encouraged she keep a log of this and bring her home machine in to the office at her next visit to be checked against a manual reading. Related to Essential hypertension Pap and breast exam performed, pt educated on breast exams. Declined mammogram until next year. Related to Encounter for screening pap smear for Ca of cervix Labs ordered and med ications renewed if needed. PAP and breast exam completed. She declines mammogram and colon cancer screening at this time. Related to Encounter for adult annual physical exam w/ abnormal findings Giving encouragement to exercise Related to Body mass index [BMI] 25.0-25.9, adult Dietary management e ducation, guidance, and counseling Related to Body mass index [BMI] 25.0-25.9, adult Elevated in office h owever pt states she does check this regularly at home and pressures are very well controlled, always 130/80s. Advised her to continue to monitor and to bring a log with her to her next appt. No medication changes at this time and medications were refilled. Follow up at [facility] in 1-2 months where we will get labs, sooner if needed. Related to Essential hypertension Discussed option wit h pt, she would like to try vistaril and discussed how to take and side effects to watch for. Pt due for CPE, will follow up in 1-2 months for this as well as labs. Can call or return sooner if needed. Related to Adjustment disorder with anxiety Gave pt order, she d oes want to do this but not at this time. States she will schedule the mammogram in the near future. Related to Encounter for screening mammogram for Ca of breast No pain on exam, roderick l get US to evaluate for gallbladder and follow up pending results. Also started pepcid for symptoms. Will follow up pending imaging results, discussed when to return or seek emergency care should symptoms worsen and she agreed. Related to Abdominal pain Slightly elevated to day but pt states pressures at the highest have been 114/80 at home when checking. Will make no changes to medications and follow up in 6 months for preventative exam and labs. Related to Essential hypertension Controlled today on current medications, will clear for dental surgery. Pt also has at home Buspar and vistaril for anxiety prior to procedure if needed, states clonidine seems to be the only thing that works. Advised calling in the meantime if she has any additional concerns, otherwise want to see back for 6 month follow up for BP and lab check. Related to Essential hypertension BP not well controll ed even on medication, pt is very visibly distraught during appt due to recent interaction with dentist. Will continue on metoprolol and add losartan 50mg. Wrote down med changes for pt and answered all questions. Did discuss short term medication options to use prior to dental appt and gave clonidine and how to take/side effects and not taking with beta ariana. Pt wants to avoid xanax at this time. Will see back for lab visit in 2 weeks and follow up OV in 1 month, just before her next dental appt. Related to Essential hypertension BP elevated today, d id state she has been taking sinus medication and this is why she feels her BP is elevated, along with her pain. She does have two different cuffs at home that she will start monitoring this at home and call if they remain elevated. Related to Essential hypertension UA negative for infe ction but does have trace blood. Given symptoms and history will start on antibiotics and send for culture. Discussed when to call or go to ED should symptoms worsen and she agrees. Related to Urinary tract infection Pt agrees to stay on buspar daily, does state it helps with her anxiety since coming home from the hospital but also with quitting smoking and dealing with lingering anxiety after the of her . Advised follow up in 1 month for med review. Related to Generalized Anxiety Disorder Doing well off cigar ettes, does struggle with cravings when anxiety increases but buspar helps with this. Avoid nicotine replacement at this time. Related to Nicotine dependence, cigarettes, in remission No residual effects from CVA. Discussed importance of lifestyle modifications and reducing risk factors as much as possible. BP well controlled and she has quit smoking. States she would like to make an appt with care management once she is feeling better to discuss diet and exercise changes as well. Related to Personal history of cerebral infarction w/o residual deficit Stable on current me dications. Encouraged to continue to check regularly at home and call should she have concerns with BP elevating. Related to Essential hypertension Doing well post surg sarai, pain continues to improve and she is able to be more active, although does still have lifting restrictions in place until she meets with surgeon next week. Continue on plavix and statin, understands she will need to take this forever. BP controlled. Related to Occlusion and stenosis of right carotid artery Stop vistaril due to sleepiness, will trial BuSpar and discussed how/when to take. Also advised she make sure to take this before her next dental appointment. If she is not having any improvement in her anxiety in the next few weeks she is to call the office for med dose adjustment. See back 1 month for med review. Related to Generalized Anxiety Disorder Will switch medicati on to metoprolol as Lisinopril was causing cough, wrote this down for patient as well as how to take, side effects to watch for. She will continue to monitor blood pressure at home and call if it continues to be elevated or goes too low. Would like to see back in 1 month for med review, sooner if needed. Related to Essential hypertension States overall she f eels her anxiety is getting better. She rarely uses vistaril and does not need a med refill at this time. States she does not feel any additional medication is needed and declined BH at this time, knows this is an option should she wish to make one in the future. Related to Generalized Anxiety Disorder Start antibiotics fo r dental infection, discussed when to go to ED with worsening symptoms. She will continue to follow up with dental to see if teeth need further care. Related to Disorder of teeth and supporting structures, unspecified Much better controll ed on lisinopril, will continue on medication and see back in 6 months for labs and med review. Related to Essential hypertension Labs today to check lipid panel, has strong family history of elevated cholesterol and CAD. Discussed heart healthy diet and encouraged her to continue to stay active. Related to Mixed hyperlipidemia Start vistaril as ne eded for anxiety and discussed side effects to watch for, especially drowsiness. See back 1 month for med review, sooner if needed. Related to Generalized Anxiety Disorder Is working on cuttin g back, down to 4-5 cigarettes a day. States she would like to move forward with possible COPD work-up at her next visit. Declines an inhaler at this time, does not feel it is needed. Related to Nicotine dependence, cigarettes, uncomplicated Start lisinopril 20m g and went over side effects to watch for. She will continue to check and record her BP daily and was advised to call if pressure were above 150/90. Discussed when to go to ED and she agrees. Labs today. See back 1 month. Related to Essential hypertension Gave order for x-ray , can use tylenol if needed for discomfort. Will review results of imaging at follow up appt in 1 month. Related to Pain in right shoulder Assessments Type Assessment Date No Information Patient Care Teams Name Effective Dates (start - stop) Status Members No Information
[2025-07-01 14:53] LABS: Hematocrit 42.9 % (37.0-47.0); Hemoglobin 14.0 g/dL (12.2-16.2); Immature Granulocytes % 0.2 %; Mean Corpuscular HGB Conc 32.6 g/dL (31.8-35.4); Mean Corpuscular Hemoglobin 31.7 pg (27.0-31.2); Mean Corpuscular Volume 97.1 fl (81-99); Nucleated Red Blood Cells % 0 %; Platelet Count 281 K/mm3 (142-424); Red Blood Count 4.42 M/mm3 (4.20-5.40); Red Cell Distribution Width-SD 49.0 fL; White Blood Count 4.9 K/mm3 (4.8-10.8)
[2025-07-01 15:21] LABS: Alanine Aminotransferase 19 U/L (12-78); Albumin Level 4.5 g/dl (3.5-5.0); Albumin/Globulin Ratio 1.6 (1.1-1.8); Alkaline Phosphatase 143 U/L (38-126); Anion Gap 8.8 mEq/L (5-15); Aspartate Amino Transferase 29 U/L (14-36); Bilirubin,Total 0.6 mg/dl (0.2-1.3); Blood Urea Nitrogen 16 mg/dl (7-17); Calcium 9.2 mg/dl (8.4-10.2); Carbon Dioxide 27 mmol/L (22.0-30.0); Chloride 106 mmol/L (98-107); Cholesterol 212 mg/dl (140-200); Creatinine,Serum 0.80 mg/dl (0.52-1.04); Estimated Glomerular Filt Rate 72 ml/min (>60); GFR (African American) 87 ML/MIN (>60); Globulin 2.8 g/dL (1.3-3.2); Glucose 88 mg/dl (74-100); HDL Cholesterol 92 mg/dl (40-60); Potassium 4.8 mmoL/L (3.5-5.1); Sodium 137 mmol/L (136-145); Total Protein,Serum 7.3 g/dl (6.3-8.2); Triglycerides 106 mg/dl (30-150)
[2025-07-01 15:26] LABS: Hemoglobin A1C 5.6 % (4.0-6.0)
[2025-07-01 15:51] LABS: Thyroid Stimulating Hormone 1.44 uIU/mL (0.465-4.68)
[2025-07-01 16:10] LABS: Vitamin B12 323 pg/mL (239-931)
--- OUTSIDE RECORDS SUMMARY | 2025-07-04 09:49 | XMS_ITS | Clinical Summary ---
Author Organization [facility] Address [address] [place] [address] Phone Care Team Providers Care Applications Manager Name Role Phone Unavailable Primary Care Provider Unavailabl e Allergies Active Allergy Reactions Criticality Noted Date Comments Penicillins Swelling High 04/09/2025 Medications aspirin 81 mg Oral tablet 09/14/2020 Active atorvastatin (LIPITOR) 80 mg Oral Tablet 09/09/2020 Active metoprolol succinate (TOPROL-XL) 25 mg Oral Tablet Sustained Release 24 hr Take 25 mg by mouth. Active losartan (COZAAR) 50 mg Oral Tablet 09/14/2020 Active hydrOXYzine (ATARAX) 10 mg Oral Tablet 03/11/2025 Active cetirizine (ZYRTEC) 10 mg Oral Capsule 09/14/2020 Active Calcium Citrate-Vitamin D3 315 mg-6.25 mcg (250 unit) Oral Tablet Take 1 Tablet by mouth 2 times daily. 03/12/2025 Active metoprolol (LOPRESSOR) 25 mg Oral Tablet 09/14/2020 Acti ve Active Problems Problem Noted Date Diagnosed Date S/P carotid endarterectomy, right 04/09/2025 Overview (04/09/2025): 2020 History of CVA (cerebrovascular accident) 2024 Cigarette nicotine dependence without complicati on 04/09/2025 Carotid disease, bilateral 04/08/2025 Encounters Date Type Department Care Team Description 04/09/2025 2:00 PM EDT Office Visit [facility] [address] [facility] [address] [place] [id number] Juaquin Kirk DO Bilateral carotid artery stenosis; S/P carotid endarterectomy, right; PAD (peripheral artery disease); History of CVA (cerebrovascular accident); Cigarette nicotine dependence without complication from Last 3 Months Social History Tobacco Use Types Packs/Day Years Used Date Smoking Tobacco: Every Day Cigarettes Tobacco Cessation:Counseling Given: No Comments No Sex and Gender Information Value Date Recorded Sex Assigned at Not on file Legal Sex Female 4:11 PM EDT Gender Identity Not on file Sexual Orientation Not on file Last Filed Vital Signs Vital Sign Reading Time Taken Comments Blood Pressure 148/90 04/09/2025 1:54 PM EDT Pulse 100 04/09/2025 1:51 PM EDT Temperature 36.7 C (98.1 F) 04/09/2025 1:54 PM EDT Respiratory Rate - - Oxygen Saturation - - Inhaled Oxygen Concentration - - Weight 55.3 kg (122 lb) 04/09/2025 1:54 PM EDT Height 154.9 cm (5' 1 ) 04/09/2025 1:54 PM EDT Body Mass Index 23.05 04/09/2025 1:54 PM EDT Plan of Treatment Upcoming Encounters Date Type Department Care Team (Late st Contact Info) Description 10/08/2025 12:30 PM EDT Appointment [facility] [place] [address] Juaquin Kirk DO [address] [place] [address] [address] [place] [address] 10/08/2025 1:30 PM EDT Appointment [facility] [place] [address] Juaquin Kirk DO [address] [place] [address] [address] [place] [id number] 10/08/2025 3:30 PM EDT Office Visit [facility] [address] [place] [address] [place] [phone] Juaquin Kirk DO [address] [place] [address] [address] [place] [id number] Health Maintenance Due Date Last Done Comments Wellness Exam Medicare 10/08/1962 Hepatitis C Screening 10/08/1977 DTaP/TDaP/Td (1 - Tdap) 10/08/1978 Pneumococcal Vaccine 50+ (1 of 2 - PCV) 10/08/1978 Cervical Cancer Screening 10/08/1980 Pap Smear 10/08/1980 HPV/Pap Cotest 10/08/1989 Cologuard 10/08/2004 Colon Cancer Screening 10/08/2004 Colonoscopy 10/08/2004 FIT 10/08/2004 Sigmoidoscopy 10/08/2004 Virtual Colonography 10/08/2004 Zoster (1 of 2) 10/08/2009 COVID-19 Vaccine ( - season) 2025 Influenza Vaccine (#1) 2025 Breast Cancer Screening 01/06/2027 01/07/20, 01/06/2025, 12/11/2024, Additional history exists Bone Density Screening Completed 12/12/2024 Hepatitis B Vaccine Aged Out No longe r eligible based on patient's age to complete this topic Meningococcal B Vaccine Aged Out No l onger eligible based on patient's age to complete this topic Insurance [place] [address] [employer] [place] PART A AND B [employer]IC[employer] HMA
== END 2025-07-01 23:59 | disposition home or self-care (01) ==
LOC: LAB.DROPOF 07-04 09:48
PROVIDERS: PCP Nurse Practitioner; Visit Provider Nurse Practitioner
DX: J30.9 Allergic rhinitis, unspecified (principal); I10 Essential (primary) hypertension; F41.9 Anxiety disorder, unspecified; Z86.73 Personal history of transient ischemic attack (TIA), and cerebral infarction without residual deficits; R73.01 Impaired fasting glucose; I63.231 Cerebral infarction due to unspecified occlusion or stenosis of right carotid arteries
CPT/HCPCS: 80053; 80061; 82607; 83036; 84443; 85025